=== PATIENT | male | born 1955 | race Caucasian/White ===

== ENCOUNTER → 2018-10-16 10:27 | Outpatient (CLI) | payer SELFPAY ==
--- NOTE | 2018-10-16 11:29 | RAD_ITS ---
STUDY: X-RAY - LEFT HIP REASON FOR EXAM: Male, 63 years old. Ongoing pain for a few years TECHNIQUE: 2 views of the hip. COMPARISON: None. FINDINGS: Normal femoral head, neck, intertrochanteric region and visualized proximal femur. Normal acetabulum. There is moderate articular joint space narrowing of the left and right hip. Mild soft tissue swelling along the superolateral acetabulum. Normal visualized superior and inferior pubic rami and ischial tuberosities. 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 Soft tissue swelling along the superolateral acetabulum. Electronically Signed: Galilea Huggins MD at 7:02 EDT , Service support ,
== END ==
PROVIDERS: Family Provider Family Medicine; PCP Family Medicine; Referring Provider Family Medicine; Visit Provider Family Medicine
DX: M25.552 Pain in left hip (principal)
CPT/HCPCS: 73502

== ENCOUNTER → 2018-12-07 | Outpatient (CLI) | payer SELFPAY ==
--- NOTE | 2018-12-07 09:50 | RAD_ITS ---
PROCEDURE: Fluoroscopic guided Hip Injection DATE: December 07, 2018. INDICATION: Male, 63 years old. Chronic left hip pain. PHYSICIAN: Oscar David M.D. MEDICATIONS: 20 mg of Kenalog and 2 cc of 1% Xylocaine. 2% Lidocaine administered subcutaneously for local anesthesia. ACCESS SITE: Left hip. NEEDLE: 22-gauge spinal needle. FLUOROSCOPY TIME (if supplied): (1:00) minutes/seconds FINDINGS: The risks, benefits, and alternatives to the procedure were explained to the patient. The specific risks of bleeding, infection, and neurovascular injury were detailed and accepted. Witnessed informed consent was obtained. A 22-gauge spinal needle was positioned under radiographic fluoroscopic localization. Approximately 2 cc of Isovue-300 instilled for localization purposes. Medication was then injected. The patient tolerated the procedure well without any immediate complications. RAD/Inj/Asp Narinder Jt Should/Hip/Knee IMPRESSION: 1. Successful fluoroscopic guided hip injection. Electronically Signed: Oscar David, at 10:31 EDT , Service support ,
== END | disposition home or self-care (01) ==
PROVIDERS: Family Provider Family Medicine; PCP Family Medicine; Referring Provider Orthopaedic Surgery; Visit Provider Orthopaedic Surgery
DX: M16.12 Unilateral primary osteoarthritis, left hip (principal)
CPT/HCPCS: 20610; 77002; Q9967